=== PATIENT | male | born 1995 | race Caucasian/White ===

== ENCOUNTER 2019-05-15 20:24 | Emergency (ER) | payer OTHER, SELFPAY ==
[2019-05-15 20:25] VITALS: BP 152/93; PULSE 79; RESP 15; TEMP 37.1; O2SAT 95; BMI 22.9
--- NOTE | 2019-05-15 20:52 | ED.VIS.GEN ---
History of Present Illness Chief Complaint: Abd Pain Detail of Chief Complaint: Epigastric abdominal pain Informant: Patient, Significant Other Onset: Days Timing: Waxes and wanes Current Severity: Mild Maximum Severity: Moderate Narrative: Patient presents with epigastric abdominal pain for the past 2 days. He had some vomiting yesterday but only nausea today. Pain does seem to worsen after food. states he does tend to have reflux symptoms and uses Tums after meals. He denies fever or chills. He denies prior abdominal surgery. Past Medical History - Allergies and Home Meds Allergies/Adverse Reactions: Allergies No Known Allergies Allergy (Verified 05/15/19 20:24) Primary Care Physician: NOT,DEFINED [NON-STAFF] - Prior records reviewed: Yes Past Medical History: - - Reviewed Lives: Spouse/ Significant Other Review of Systems General: Denies: Chills, Fever Eyes: Denies: Visual changes - bilaterally ENT: Denies: Bilateral ear pain Cardiovascular: Denies: Chest pain Respiratory: Denies: Dyspnea Gastrointestinal: Reports: Abdominal pain, Nausea, Vomiting. Denies: Diarrhea Genitourinary: Denies: Dysuria, Hematuria Skin: Denies: Rash Neurological: Denies: Headache Endocrine: Denies: Polyuria, Polydipsia Hematologic: Denies: Easy bruising Allergy: Denies: Uticaria Physical Exam Vital Signs/Narrative: Vital Signs Temp Pulse Resp BP Pulse Ox 05/15/19 20:25 98.7 F 79 15 152/93 H 95 Inital Vital Signs reviewed: Yes General: Well nourished Eyes: EOMI ENT: Moist mucous membranes Neck: Supple Cardiovascular: Regular rate, Regular rhythm Respiratory: No distress, CTA bilaterally Abdomen: Soft, Tender - Mild tenderness in the epigastrium and right upper quadrant., Hypoactive bowel sounds. Negative for: Guarding, Rebound tenderness Skin: Normal color Neurological: Alert, Oriented x3 Psychological: Normal affect Diagnostic/Tx/Re-eval Impressions Gallbladder Ultrasound 05/15/19 20:53 IMPRESSION: Normal right upper quadrant ultrasound examination. Electronically Signed: Hoda Boyle MD at 22:03 EDT Tel , Service support , 05/15/19 20:53 US Gallbladder [Gallbladder] [US] Stat Laboratory Results 05/15/19 05/15/19 21:05 21:05 WBC 11.2 H RBC 5.88 Hgb 17.2 H Hct 49.9 MCV 84.9 MCH 29.3 MCHC 34.5 RDW Std Deviation 37.4 RDW Coeff of Jeanette 12.1 Plt Count 227 MPV 9.4 Immature Gran % (Auto) 0.200 Neut % (Auto) 79.5 H Lymph % (Auto) 14.7 L [place] % (Auto) 5.1 Eos % (Auto) 0.2 Baso % (Auto) 0.3 Absolute Neuts (auto) 9.0 H Absolute Lymphs (auto) 1.65 Nucleated RBC % 0 Sodium 140 Potassium 4.0 Chloride 106 Carbon Dioxide 29.0 Anion Gap 5 BUN 9 Creatinine 1.08 Estim Creat Clear Calc 105.32 Est GFR (MDRD) Af Amer 107 Est GFR (MDRD) Non-Af 89 BUN/Creatinine Ratio 8.3 L Glucose 105 Calcium 10.0 Total Bilirubin 0.50 Direct Bilirubin 0.12 AST 13 L ALT 32 Alkaline Phosphatase 74 Total Protein 8.6 H Albumin 4.5 Globulin 4.1 Lipase 56 L - Medical Decision Making Patient was given IV fluids, Bentyl, Zofran, and Protonix here. Test results are discussed with patient and family at bedside. does report patient complains of significant acid reflux. He will be started on Prilosec. At this time there is no evidence of acute gallbladder disease. ED Disposition - Plan for ED Patient: Disposition: Home or Assisted Living Diagnosis: Gastritis Instructions: GASTRITIS vs. ULCER Prescriptions: Omeprazole [Prilosec] 20 mg PO DAILY #30 capsule Referrals: Lynne Montenegro MD [STAFF PHYSICIAN] - As Needed
--- NOTE | 2019-05-15 20:53 | US_ITS ---
STUDY: ABDOMINAL ULTRASOUND - RIGHT UPPER QUADRANT REASON FOR VISIT: Male, 23 years old. Abdominal pain. TECHNIQUE: Ultrasound evaluation of the right upper quadrant was performed with real-time and static morin-scale imaging. TECHNICAL QUALITY: Adequate. COMPARISON: None. FINDINGS: Liver: The liver measures 15.4 cm. There is normal echogenicity of the liver. The bile ducts are within normal limits. There is hepatic color flow. The direction of portal flow is hepatopetal. There is no demonstrated mass lesion. Gallbladder: Normal distended gallbladder. The gallbladder wall measures 2 mm. There is a negative sonographic Holder's sign. There is no pericholecystic fluid. There are no gallstones. Common Bile Duct (C.B.D.): The common bile duct measures 3 mm. Pancreas: Visualized pancreas is unremarkable. Tail is poorly seen. Right Kidney: Normal size of the right kidney. The right kidney measures 10 x 3.7 x 5.1 cm. Normal renal cortex. The right cortex measures 1.5 cm. There is no demonstrated renal mass or cyst. There is no right hydronephrosis. US/Gallbladder IMPRESSION: Normal right upper quadrant ultrasound examination. Electronically Signed: Hoda Boyle MD at 22:03 EDT Tel , Service support ,
[2019-05-15] MEDS: Dicyclomine 20 MG/2 ML Vial IM (21:10)
[2019-05-15] MEDS: 0.9% Normal Saline 1,000 ML 150 ML IV (21:11)
[2019-05-15] MEDS: Ondansetron 4 MG/2 ML Vial IV (21:11)
[2019-05-15 21:17] LABS: Absolute Lymphocyte Count 1.65 X10^3/uL (0.83-4.51); Basophil# 0.03 X10^3/uL; Basophil% 0.3 % (0-1); Eosinophil# 0.02 X10^3/uL; Eosinophils% 0.2 % (0-5); Hematocrit 49.9 % (40-54); Hemoglobin 17.2 g/dL (13.0-16.5); Lymphocyte # 1.65 X10^3/ul (4.0); Lymphocyte % 14.7 % (19-41); Mean Corp Hgb Conc 34.5 g/dL (32-36); Mean Corpuscular Hgb 29.3 pg (27.0-32.0); Mean Corpuscular Volume 84.9 fL (80-94); Mean Platelet Vol. 9.4 fl (6.2-12.0); Monocyte# 0.57 X10^3/uL; Monocyte% 5.1 % (0-10); NRBC Flagged by Analyzer 0 % (0-5); Neutrophil # 8.95 X10^3/uL (2.7-7.7); Neutrophil % 79.5 % (47-70); Platelet Count 227 K/mm3 (150-450); RBC Distribution Width CV 12.1 % (11.6-14.6); RBC Distribution Width SD 37.4 fl (35.1-43.9); Red Blood Count 5.88 M/mm3 (4.6-6.2); White Blood Count 11.2 K/mm3 (4.4-11.0)
[2019-05-15 21:37] LABS: AST(SGOT) 13 U/L (15-37); Alanine Aminotransfer ALT/SGPT 32 U/L (16-61); Albumin, Serum 4.5 g/dL (3.2-5.0); Alkaline Phosphatase 74 U/L (45-117); Anion Gap 5 (5-15); BUN 9 mg/dL (7-18); BUN/Creat Ratio 8.3 RATIO (10-20); Bilirubin, Direct 0.12 mg/dL (0.00-0.30); Chloride 106 mmol/L (98-107); Creatinine, Serum 1.08 mg/dL (0.70-1.30); EST Glomerular Filtration Rate 89 mL/min (>60); Est Glom Filt Rate - Afr Amer 107 mL/min (>60); Estimated Creatinine Clearance 105.32 ml/min; Globulin 4.1 g/dL (2.2-4.2); Glucose 105 mg/dL (74-106); Lipase 56 U/L (73-393); Protein, Total 8.6 g/dL (6.4-8.2); Sodium Level 140 mmol/L (136-145)
[2019-05-15 22:45] VITALS: BP 122/87; PULSE 65; RESP 16; O2SAT 99
== END 2019-05-15 22:46 | disposition home or self-care (01) ==
PROVIDERS: Emergency Provider Emergency Medicine; Family Provider Family Medicine; PCP Family Medicine
DX: K29.70 Gastritis, unspecified, without bleeding (principal)
CPT/HCPCS: 76705; 80048; 80076; 83690; 85025; 96361; 96365; 96372; 96375; 99284; J7030; A4216; J2405